=== PATIENT | female | born 1975 | race Caucasian/White ===

== ENCOUNTER 2019-07-19 16:49 | Emergency (ER) | payer SELFPAY ==
[2019-07-19 17:56] LABS: Barbiturates NEGATIVE (NEGATIVE); Benzodiazepines NEGATIVE (NEGATIVE); Cocaine NEGATIVE (NEGATIVE); METHAMPHETAM NEGATIVE (NEGATIVE); Methadone NEGATIVE (NEGATIVE); Opiates NEGATIVE (NEGATIVE); Phencyclidine NEGATIVE (NEGATIVE); THC Cannibis NEGATIVE (NEGATIVE)
[2019-07-19 18:24] LABS: Absolute Lymphocytes (CBC) 2.2 K/uL (0.7-4.9); Basophils % 0.7 % (0-1.3); Hematocrit 34.5 % (36.0-45.0); Lymphocytes % 37.9 % (15.3-44.8); MPV 7.8 fL (7.6-11.3); RBC Red Blood Cell Count 4.83 M/uL (3.86-4.86)
[2019-07-19 18:30] LABS: Urine Blood TRACE (NEG); Urine Glucose NEGATIVE (NEG); Urine Protein NEGATIVE (NEG)
[2019-07-19 18:32] LABS: Protime INR 0.92
[2019-07-19] MEDS ORDERED: NA CHLORIDE 0.9% 1,000 ML ONE (18:40)
[2019-07-19 19:05] LABS: Platelet Estimate ADEQ; Urine White Blood Cell Casts OK
[2019-07-19 19:06] LABS: Anisocytosis 1+; Blood Morphology Comment NOTED (NOT SEEN)
[2019-07-19 19:07] LABS: ALT/SGPT 37 U/L (12-78); AST/SGOT 52 U/L (15-37); Albumin 3.6 g/dL (3.4-5.0); Alkaline Phosphatase 154 U/L (45-117); BUN Blood Urea Nitrogen 10 mg/dL (7-18); Bicarbonate 29 mmol/L (21-32); Bilirubin Direct 0.1 mg/dL (0-0.2); Bilirubin Total 0.2 mg/dL (0.2-1.0); Glucose Level 89 mg/dL (74-106); Lipase 103 U/L (73-393); Protein, Total 7.8 g/dL (6.4-8.2); Sodium Level 143 mmol/L (136-145)
[2019-07-19] MEDS ORDERED: LORazepam 2 MG/ML VIAL ONE (19:09)
--- NOTE | 2019-07-19 20:47 | RAD REPORT ---
EXAM DESCRIPTION: CT - Abdomen Pelvis Wo Contrast - 07/19/2019 8:36 pm CLINICAL HISTORY: Abdominal pain. ABD PAIN COMPARISON: No comparisons TECHNIQUE: CT imaging of the abdomen and pelvis was performed without contrast. Solid organ, bowel a nd vascular assessment is limited due to lack of IV and oral contrast. All CT scans are performed using dose optimization technique as appropriate and may include automated exposure control or mA/KV adjustment according to patient size. FINDINGS: The lower lung borjas are clear.Cholecystectomy clips. Postsurgical changes about the stom ach. The liver, spleen, pancreas, adrenal glands and kidneys are within normal limits for a limited non-co ntrast examination. No bowel obstruction, free air, free fluid or abscess. The appendix is normal. The osseous structures are within normal limits.IUD is present in the uterus. IMPRESSION: No acute intra-abdominal or pelvic findings. A limited non-contrast examination was performed as detailed.
[2019-07-19] MEDS ORDERED: KETOROLAC 30 MG/ML INJ ONE (20:50)
[2019-07-20] MEDS ORDERED: LORazepam 2 MG/ML VIAL ONE (00:12)
[2019-07-20] MEDS ORDERED: ZIPRASIDONE MESYLA 20 MG/VIAL IM ONE (00:12)
[2019-07-20] MEDS ORDERED: DIPHENHYDRAMINE 50 MG/ML VIAL ONE (00:12)
[2019-07-20] MEDS ORDERED: WATER FOR INJ,STERILE 10 ML ONE (00:13)
--- NOTE | 2019-07-20 02:51 | ER ---
Nurse's Notes [facility] Name: Janessa Melton Age: 44 yrs Sex: Female : 1975 Arrival Date: 07/19/2019 Time: 16:53 Bed 14 Private MD: Diagnosis: Unspecified abdominal pain;Alcohol abuse Presentation: 07/19 17:00 Presenting complaint: EMS states: RLQ abdominal pain x 1 week, pt has been drinking jl7 today. Transition of care: patient was not received from another setting of care. Onset of symptoms was July 13, 2019. Risk Assessment: Do you want to hurt yourself or someone else? Patient reports no desire to harm self or others. Initial Sepsis Screen: Does the patient meet any 2 criteria? No. Patient's initial sepsis screen is negative. Does the patient have a suspected source of infection? No. Patient's initial sepsis screen is negative. Care prior to arrival: None. 17:00 Method Of Arrival: EMS: [facility] 17:00 Acuity: TATYANA 3 jl7 Triage Assessment: 17:00 General: Appears uncomfortable, ill, Behavior is agitated, crying, uncooperative. jl7 General: Pt refusing to answer questions, crying and repeatedly states "It hurts." while pointing at her RLQ. Pain: Complains of pain in right lower quadrant Pain currently is 10 out of 10 on a pain scale. Pain began x 1 week. Neuro: Level of Consciousness is awake, alert, obeys commands, Oriented to person, place, time, situation. Respiratory: Airway is patent Respiratory effort is even, unlabored, Respiratory pattern is regular, symmetrical. Historical: - Allergies: 18:23 No Known Allergies; jl7 - Home Meds: 18:23 digoxin 125 mcg Oral tab 1 tab once daily [Active]; Seroquel 100 mg Oral tab [Active]; jl7 omeprazole 40 mg Oral cpDR [Active]; promethazine 25 mg Oral tab [Active]; - PMHx: 18:23 Lupus; Atrial Fib; jl7 - Immunization history:: Adult Immunizations unknown. - Social history:: Smoking status: Patient/guardian denies using tobacco. - Ebola Screening: : No symptoms or risks identified at this time. Screenin:28 Abuse screen: Denies threats or abuse. Denies injuries from another. Nutritional jl7 screening: No deficits noted. Tuberculosis screening: No symptoms or risk factors identified. Fall Risk IV access (20 points). Assessment: 17:00 General: See triage assessment. jl7 18:00 Reassessment: Patient appears in no apparent distress at this time. No changes from jl7 previously documented assessment. Patient and/or family updated on plan of care and expected duration. Pain level reassessed. Patient is alert, oriented x 3, equal unlabored respirations, skin warm/dry/pink. 19:00 Reassessment: Patient appears in no apparent distress at this time. Patient and/or jb4 family updated on plan of care and expected duration. Pain level reassessed. Patient is alert, oriented x 3, equal unlabored respirations, skin warm/dry/pink. PT has a sitter at the bedside. Continues to try and get up out of bed. 20:04 Reassessment: Patient appears in no apparent distress at this time. Patient and/or jb4 family updated on plan of care and expected duration. Pain level reassessed. Patient is alert, oriented x 3, equal unlabored respirations, skin warm/dry/pink. Nurse at the bedside attempting ultrasound IV. 21:00 Reassessment: Patient appears in no apparent distress at this time. Patient and/or jb4 family updated on plan of care and expected duration. Pain level reassessed. Patient is alert, oriented x 3, equal unlabored respirations, skin warm/dry/pink. PT given a sandwich per request. 22:27 Reassessment: Patient appears in no apparent distress at this time. Patient and/or jb4 family updated on plan of care and expected duration. Pain level reassessed. Pt is resting in bed with eyes closed, respirations even and unlabored. no s/s of distress or pain noted at this time. 23:31 Reassessment: Patient appears in no apparent distress at this time. Patient and/or jb4 family updated on plan of care and expected duration. Pain level reassessed. Patient is alert, oriented x 3, equal unlabored respirations, skin warm/dry/pink. Attempted to call pt's . Derek Orlando [phone]. Did not get an answer, instructed Derek to call ED. 07/20 00:30 Reassessment: Patient and/or family updated on plan of care and expected duration. Pain jb4 level reassessed. Pt becoming increasingly noncompliant. refusing to stay in bed. Repeatedly trying to leave to the lobby to attempt to call a taxi or uber. PT reports not having anyone who can come and pick her up. Law enforcement , ER provider, and medical staff at the bedside. Pt agreed to take geodon, ativan, and benadryl. 01:45 Reassessment: Patient appears in no apparent distress at this time. Patient and/or jb4 family updated on plan of care and expected duration. Pain level reassessed. PT is resting in bed with respirations even and unlabored. no s/s of distress noted at this time. 02:45 Reassessment: Patient appears in no apparent distress at this time. No changes from jb4 previously documented assessment. Patient and/or family updated on plan of care and expected duration. Pain level reassessed. PT's d/c pending, pt being held in ED for further observation due to Geodon, Ativan, and Benadryl administration. 04:00 Reassessment: Patient appears in no apparent distress at this time. No changes from jb4 previously documented assessment. Patient and/or family updated on plan of care and expected duration. Pain level reassessed. 05:22 Reassessment: Patient appears in no apparent distress at this time. Patient and/or jb4 family updated on plan of care and expected duration. Pain level reassessed. Pt is resting in bed with respirations even and unlabored. No s/s of distress or pain noted. 06:50 Reassessment: Patient appears in no apparent distress at this time. Patient and/or jb4 family updated on plan of care and expected duration. Pain level reassessed. Patient is alert, oriented x 3, equal unlabored respirations, skin warm/dry/pink. PT discharged to [facility] to wait for ride home. Reports feeling better. Is coherent and ambulatory with a steady gait. Verbalized understanding of d/c and follow up instructions. Ambulated out of ED with a steady gait. Vital Signs: 07/19 17:00 BP 107 / 72; Pulse 87; Resp 14 S; Temp 98.6(TE); Pulse Ox 97% on R/A; Pain 10/10; jl7 18:00 BP 134 / 99; Pulse 87; Resp 16 S; Pulse Ox 100% on R/A; jl7 18:43 BP 117 / 86; Pulse 85; Resp 14 S; Pulse Ox 100% on R/A; jl7 20:15 BP 138 / 113; Pulse 80; Resp 16; Pulse Ox 100% on R/A; jb4 21:01 BP 145 / 107; Pulse 92; Resp 19; Pulse Ox 100% on R/A; jb4 22:00 BP 117 / 81; Pulse 85; Resp 20; Pulse Ox 100% on R/A; jb4 23:30 BP 124 / 93; Pulse 95; Resp 19; Pulse Ox 100% on R/A; dm5 07/20 00:30 BP 136 / 97; Pulse 93; Resp 20; Pulse Ox 100% on R/A; lp1 01:30 BP 114 / 74; Pulse 94; Resp 20; Pulse Ox 100% on R/A; lp1 02:45 BP 152 / 111; Pulse 92; Resp 21; Pulse Ox 94% on R/A; jb4 03:15 BP 115 / 81; Pulse 95; Resp 19; Pulse Ox 92% on R/A; jb4 04:30 BP 124 / 91; Pulse 85; Resp 19; Pulse Ox 93% on R/A; jb4 05:22 BP 133 / 99; Pulse 85; Resp 15; Pulse Ox 96% on R/A; jb4 ED Course: 07/19 16:53 Patient arrived in ED. bp 16:56 Angelito Hodgson MD is Attending Physician. kiana 16:57 Jack Mccall PA is PHCP. jr8 17:00 Arm band placed on right wrist. jl7 17:52 PHCP role handed off by Jack Mccall PA pm1 17:52 Yohannes Young NP is PHCP. pm1 18:00 Initial lab(s) drawn, by nd, sent to lab. Inserted saline lock: 24 gauge in left upper jl7 arm, using aseptic technique. Blood collected. 18:10 Initial lab(s) drawn, by me, sent to lab. Inserted saline lock: 24 gauge in left wrist, jl7 using aseptic technique. Blood collected. 18:16 Chance Wilkerson, ANA is Primary Nurse. jl7 18:19 Triage completed. jl7 18:27 Radiology exam delayed due to lab results not completed at this time. (BUN/Creatinine). mw3 18:28 Patient has correct armband on for positive identification. Placed in gown. Bed in low jl7 position. Call light in reach. Side rails up X2. electronic device monitor on. Pulse ox on. NIBP on. Warm blanket given. 20:01 Radiology exam delayed due to IV insertion attempt and/or patient not having mw3 appropriate IV at this time. 20:38 Abdomen In Process Unspecified. EDMS 23:16 PHCP role handed off by Yohannes Young NP cp 23:16 Angelito Mauricio PA is PHCP. cp 07/20 02:42 Reji Ambrocio MD is Referral Physician. cp 06:50 Primary Nurse role handed off by Chance Wilkerson RN jb4 06:50 Jose Conklin, ANA is Primary Nurse. jb4 06:50 No provider procedures requiring assistance completed. IV discontinued, intact, jb4 bleeding controlled, No redness/swelling at site. Pressure dressing applied. Administered Medications: 07/19 18:41 Drug: NS 0.9% 1000 ml Route: IV; Rate: 1000 ml; Site: left upper arm; jl7 19:10 Drug: Ativan 0.5 mg Route: IVP; Site: left antecubital; jb4 19:40 Follow up: Response: No adverse reaction jb4 20:50 Drug: TORadol - Ketorolac 15 mg Route: IVP; Site: left antecubital; jb4 21:20 Follow up: Response: No adverse reaction jb4 07/20 00:46 Drug: Geodon 10 mg Route: IM; Site: left deltoid; dm5 01:30 Follow up: Response: No adverse reaction; Marked relief of symptoms jb4 00:46 Drug: Benadryl 25 mg Route: IM; Site: right deltoid; dm5 01:30 Follow up: Response: No adverse reaction; Marked relief of symptoms jb4 00:46 Drug: Ativan 0.5 mg Route: IM; Site: right deltoid; dm5 01:30 Follow up: Response: No adverse reaction; Marked relief of symptoms jb4 00:59 Not Given (Patient Refused): Banana Bag - (NS 0.9% 1000 ml, foLIC Acid 1 mg, Thiamine dm5 100 mg, Multivitamin 1 amp) IV at 250 ml/hr once 06:42 Drug: Potassium Effervescent Tablet 50 mEq Route: PO; jb4 06:42 Follow up: Response: No adverse reaction jb4 Outcome: 02:42 Discharge ordered by . cp 06:50 Patient left the ED. jb4 06:50 Discharged to home ambulatory. jb4 06:50 Condition: stable 06:50 Discharge instructions given to patient, Instructed on discharge instructions, follow up and referral plans. Demonstrated understanding of instructions, follow-up care. Signatures: Dispatcher [employer] Perla Baez, RN RN dm5 Angelito Hodgson MD MD cha Pena, Laura RN RN lp1 Jack Mccall PA PA jr8 Angelito Mauricio PA PA cp Yohannes Young, INORGANIC CHEMISTRY PROFESSOR INORGANIC CHEMISTRY PROFESSOR pm1 Jose Conklin RN RN jb4 Chance Wilkerson RN RN jl7 Cruzito hCan RN RN bp Willis, Michelle mw3 Corrections: (The following items were deleted from the chart) 07/19 21:28 21:00 Reassessment: Patient appears in no apparent distress at this time. Patient jb4 and/or family updated on plan of care and expected duration. Pain level reassessed. Patient is alert, oriented x 3, equal unlabored respirations, skin warm/dry/pink. jb4 07/20 01:59 07/19 23:31 Reassessment: Patient appears in no apparent distress at this time. Patient jb4 and/or family updated on plan of care and expected duration. Pain level reassessed. Patient is alert, oriented x 3, equal unlabored respirations, skin warm/dry/pink. dm5 07/20 02:54 00:30 Reassessment: Patient and/or family updated on plan of care and expected jb4 duration. Pain level reassessed. Pt becoming increasingly uncompliant. refusing to stay in bed. Repeatedly trying to leave to the lobby to attempt to call a taxi or uber. PT reports not having anyone who can come and pick her up. Law enforcement , ER provider, and medical staff at the bedside. Pt agreed to take geodon, ativan, and benadryl. jb4
--- NOTE | 2019-07-20 02:52 | EDPHYS ---
Physician Documentation [facility] [place] [place] Name: Janessa Melton Age: 44 yrs Sex: Female : 1975 Arrival Date: 07/19/2019 Time: 16:53 Bed 14 Private MD: ED Physician Angelito Hodgson HPI: 07/19 17:08 This 44 yrs old Female presents to ER via Unassigned with complaints of abdominal pain. jr8 17:08 The patient presents with abdominal pain right lower quadrant. Onset: The jr8 symptoms/episode began/occurred acutely, 3 day(s) ago. The symptoms do not radiate. Associated signs and symptoms: Pertinent positives: nausea and vomiting. The symptoms are described as stabbing. Modifying factors: The symptoms are alleviated by nothing, the symptoms are aggravated by nothing. Severity of pain: At its worst the pain was moderate in the emergency department the pain is unchanged. It is unknown whether or not the patient has had similar symptoms in the past. It is unknown whether or not the patient has recently seen a physician. Patient smells of alcohol upon arrival. Stated that she has been drinking all day to dull the pain. Started with RLQ abdominal pain 3 days ago that is getting worse . Historical: - Allergies: 18:23 No Known Allergies; jl7 - Home Meds: 18:23 digoxin 125 mcg Oral tab 1 tab once daily [Active]; Seroquel 100 mg Oral tab [Active]; jl7 omeprazole 40 mg Oral cpDR [Active]; promethazine 25 mg Oral tab [Active]; - PMHx: 18:23 Lupus; Atrial Fib; jl7 - Immunization history:: Adult Immunizations unknown. - Social history:: Smoking status: Patient/guardian denies using tobacco. - Ebola Screening: : No symptoms or risks identified at this time. ROS: 17:08 Eyes: Negative for injury, pain, redness, and discharge, ENT: Negative for injury, jr8 pain, and discharge, Neck: Negative for injury, pain, and swelling, Cardiovascular: Negative for chest pain, palpitations, and edema, Respiratory: Negative for shortness of breath, cough, wheezing, and pleuritic chest pain, Back: Negative for injury and pain, MS/Extremity: Negative for injury and deformity, Skin: Negative for injury, rash, and discoloration, Neuro: Negative for headache, weakness, numbness, tingling, and seizure. 17:08 Abdomen/GI: Positive for abdominal pain, nausea and vomiting, Negative for diarrhea, constipation, abdominal cramps, abdominal distension. Exam: 17:08 Eyes: Pupils equal round and reactive to light, extra-ocular motions intact. Lids and jr8 lashes normal. Conjunctiva and sclera are non-icteric and not injected. Cornea within normal limits. Periorbital areas with no swelling, redness, or edema. ENT: Nares patent. No nasal discharge, no septal abnormalities noted. Tympanic membranes are normal and external auditory canals are clear. Oropharynx with no redness, swelling, or masses, exudates, or evidence of obstruction, uvula midline. Mucous membranes moist. Neck: Trachea midline, no thyromegaly or masses palpated, and no cervical lymphadenopathy. Supple, full range of motion without nuchal rigidity, or vertebral point tenderness. No Meningismus. Cardiovascular: Regular rate and rhythm with a normal S1 and S2. No gallops, murmurs, or rubs. Normal PMI, no JVD. No pulse deficits. Respiratory: Lungs have equal breath sounds bilaterally, clear to auscultation and percussion. No rales, rhonchi or wheezes noted. No increased work of breathing, no retractions or nasal flaring. Back: No spinal tenderness. No costovertebral tenderness. Full range of motion. Skin: Warm, dry with normal turgor. Normal color with no rashes, no lesions, and no evidence of cellulitis. MS/ Extremity: Pulses equal, no cyanosis. Neurovascular intact. Full, normal range of motion. Neuro: Awake and alert, GCS 15, oriented to person, place, time, and situation. Cranial nerves II-XII grossly intact. Motor strength 5/5 in all extremities. Sensory grossly intact. Cerebellar exam normal. Normal gait. 17:08 Abdomen/GI: Inspection: obese Bowel sounds: active, all quadrants, Palpation: soft, in all quadrants, moderate abdominal tenderness, in the right lower quadrant, mass, is not appreciated, rebound tenderness, is not appreciated, voluntary guarding, is not appreciated, involuntary guarding, is not appreciated, no appreciated organomegaly, Indicators: McBurney's point is tender, Gomez's sign is negative, Rovsing's sign is negative, Obturator sign is negative, Psoas sign is negative. Vital Signs: 17:00 BP 107 / 72; Pulse 87; Resp 14 S; Temp 98.6(TE); Pulse Ox 97% on R/A; Pain 10/10; jl7 18:00 BP 134 / 99; Pulse 87; Resp 16 S; Pulse Ox 100% on R/A; jl7 18:43 BP 117 / 86; Pulse 85; Resp 14 S; Pulse Ox 100% on R/A; jl7 20:15 BP 138 / 113; Pulse 80; Resp 16; Pulse Ox 100% on R/A; jb4 21:01 BP 145 / 107; Pulse 92; Resp 19; Pulse Ox 100% on R/A; jb4 22:00 BP 117 / 81; Pulse 85; Resp 20; Pulse Ox 100% on R/A; jb4 23:30 BP 124 / 93; Pulse 95; Resp 19; Pulse Ox 100% on R/A; dm5 07/20 00:30 BP 136 / 97; Pulse 93; Resp 20; Pulse Ox 100% on R/A; lp1 01:30 BP 114 / 74; Pulse 94; Resp 20; Pulse Ox 100% on R/A; lp1 02:45 BP 152 / 111; Pulse 92; Resp 21; Pulse Ox 94% on R/A; jb4 03:15 BP 115 / 81; Pulse 95; Resp 19; Pulse Ox 92% on R/A; jb4 04:30 BP 124 / 91; Pulse 85; Resp 19; Pulse Ox 93% on R/A; jb4 05:22 BP 133 / 99; Pulse 85; Resp 15; Pulse Ox 96% on R/A; jb4 MDM: 07/19 16:56 Patient medically screened. [facility] 07/20 00:00 Differential diagnosis: appendicitis, gastritis, non-specific abd pain, pancreatitis, cp Pyelonephritis, Ureterolithiasis, urinary tract infection. Counseling: I had a detailed discussion with the patient and/or guardian regarding: the historical points, exam findings, and any diagnostic results supporting the discharge/admit diagnosis, the presence of at least one elevated blood pressure reading (>120/80) during this emergency department visit, lab results, radiology results, to return to the emergency department if symptoms worsen or persist or if there are any questions or concerns that arise at home. Response to treatment: the patient's symptoms have markedly improved after treatment, and as a result, I will discharge patient. 02:41 Data reviewed: vital signs, nurses notes, lab test result(s), EKG, radiologic studies, cp CT scan. 02:41 Test interpretation: by ED physician or midlevel provider: ECG. 07/19 16:58 Order name: Acetaminophen; Complete Time: 19:22 07/19 16:58 Order name: Basic Metabolic Panel; Complete Time: 19:22 07/19 16:58 Order name: CBC with Diff; Complete Time: 19:07 07/19 16:58 Order name: ETOH Level; Complete Time: 18:57 07/19 16:58 Order name: Hepatic Function; Complete Time: 19:22 07/19 16:58 Order name: PT-INR; Complete Time: 18:38 07/19 16:58 Order name: Ptt, Activated; Complete Time: 18:38 07/19 16:58 Order name: Salicylate; Complete Time: 19:08 07/19 16:58 Order name: Urine Drug Screen; Complete Time: 17:57 07/19 16:58 Order name: Digoxin; Complete Time: 19:22 07/19 16:58 Order name: Lipase; Complete Time: 19:22 07/19 17:47 Order name: Urine Dipstick--Ancillary (enter results); Complete Time: 18:32 ms 07/19 17:47 Order name: Urine --Ancillary (enter results); Complete Time: 18:32 ms 07/19 18:28 Order name: CBC Smear Scan; Complete Time: 19:07 EDMS 07/19 16:58 Order name: Urine Test (obtain specimen); Complete Time: 18:41 07/19 16:58 Order name: EKG; Complete Time: 17:00 07/19 16:58 Order name: EKG - Nurse/Tech; Complete Time: 18:17 07/19 16:58 Order name: IV Saline Lock; Complete Time: 18:17 07/19 20:24 Order name: Abdomen ; Complete Time: 20:55 EDMS 07/20 02:03 Order name: Alcohol Level 07/20 02:54 Order name: Alcohol Serum/Plasma; Complete Time: 03:09 EDMS 07/19 16:58 Order name: Labs collected and sent; Complete Time: 18:17 jr8 07/19 16:58 Order name: Urine Dipstick-Ancillary (obtain specimen); Complete Time: 18:17 jr8 Administered Medications: 07/19 18:41 Drug: NS 0.9% 1000 ml Route: IV; Rate: 1000 ml; Site: left upper arm; jl7 19:10 Drug: Ativan 0.5 mg Route: IVP; Site: left antecubital; jb4 19:40 Follow up: Response: No adverse reaction jb4 20:50 Drug: TORadol - Ketorolac 15 mg Route: IVP; Site: left antecubital; jb4 21:20 Follow up: Response: No adverse reaction jb4 07/20 00:46 Drug: Geodon 10 mg Route: IM; Site: left deltoid; dm5 01:30 Follow up: Response: No adverse reaction; Marked relief of symptoms jb4 00:46 Drug: Benadryl 25 mg Route: IM; Site: right deltoid; dm5 01:30 Follow up: Response: No adverse reaction; Marked relief of symptoms jb4 00:46 Drug: Ativan 0.5 mg Route: IM; Site: right deltoid; dm5 01:30 Follow up: Response: No adverse reaction; Marked relief of symptoms jb4 00:59 Not Given (Patient Refused): Banana Bag - (NS 0.9% 1000 ml, foLIC Acid 1 mg, Thiamine dm5 100 mg, Multivitamin 1 amp) IV at 250 ml/hr once 06:42 Drug: Potassium Effervescent Tablet 50 mEq Route: PO; jb4 06:42 Follow up: Response: No adverse reaction jb4 Disposition: 09:37 Co-signature as Attending Physician, Angelito Hodgson MD I agree with the assessment and kiana plan of care. Disposition: 07/20/19 02:42 Discharged to Home. Impression: Unspecified abdominal pain, Alcohol abuse. - Condition is Stable. - Discharge Instructions: Hypokalemia, Abdominal Pain, Adult, Finding Treatment for Addiction, Alcohol Abuse and Nutrition. - Medication Reconciliation Form, Thank You Letter, Antibiotic Education, Prescription Opioid Use form. - Follow up: Emergency Department; When: As needed; Reason: Worsening of condition. Follow up: Private Physician; When: 2 - 3 days; Reason: Recheck today's complaints, Continuance of care, Re-evaluation by your physician. Follow up: Reji Ambrocio; When: 2 - 3 days; Reason: Recheck today's complaints, Continuance of care, Re-evaluation by your physician. - Problem is new. - Symptoms have improved. Signatures: Dispatcher [employer] [facility] Perla Lane, RN RN dm5 Angelito Hodgson MD MD cha Lam, Pin, MD MD pkl Roszak, Josh, PA PA jr8 Angelito Mauricio PA PA cp Yohannes Young, GENERAL PEDIATRICIAN GENERAL PEDIATRICIAN pm1 Jose Conklin, RN RN jb4 Chance Wilkerson RN RN jl7 Corrections: (The following items were deleted from the chart) 07/19 20:23 17:15 Abdomen Pelvis W Con+CT.RAD.BRZ ordered. [facility] 07/20 06:50 02:42 07/20/2019 02:42 Discharged to Home. Impression: Unspecified abdominal pain; jb4 Alcohol abuse. Condition is Stable. Discharge Instructions: Abdominal Pain, Adult, Finding Treatment for Addiction, Alcohol Abuse and Nutrition. Forms are Medication Reconciliation Form, Thank You Letter, Antibiotic Education, Prescription Opioid Use. Follow up: Emergency Department; When: As needed; Reason: Worsening of condition. Follow up: Private Physician; When: 2 - 3 days; Reason: Recheck today's complaints, Continuance of care, Re-evaluation by your physician. Follow up: Reji Ambrocio; When: 2 - 3 days; Reason: Recheck today's complaints, Continuance of care, Re-evaluation by your physician. Problem is new. Symptoms have improved. cp
--- NOTE | 2019-07-20 05:31 | EKG ---
Test Date: 2019-07-19 Test Time: 18:03:51 Echo Vascular Tech: VAISHALI MEASUREMENT RESULTS: Intervals: Rate: 97 NC: 136 QRSD: 82 QT: 368 QTc: 467 [place]: P: 52 NC: 136 QRS: 37 T: 65 INTERPRETIVE STATEMENTS: Normal sinus rhythm Normal ECG No previous ECG available for comparison Electronically Signed On 07-20-19 05:30:16 TRAINING AND DEVELOPMENT MANAGER by Ruddy Obregon
[2019-07-20] MEDS ORDERED: POTASSIUM 25 MEQ EFFERV TAB ONE (06:36)
[2019-07-20 06:59] VITALS: TEMP 98.6
[2019-07-20 07:15] VITALS: BP 133/99; O2SAT 96
== END 2019-07-20 06:50 | disposition home or self-care (01) ==
LOC: ER 16:49
DX: F10.10 Alcohol abuse, uncomplicated (principal); I48.91 Unspecified atrial fibrillation
CPT/HCPCS: 36415; 74176; 80048; 80076; 80162; 80307; 80320; 80329; 81003; 81025; 83690; 85025; 85610; 85730; 93005; 96372; 96374; 96375; 99285; J1200; J3486; J7030

== ENCOUNTER 2019-07-30 03:01 | Emergency (ER) | payer SELFPAY ==
[2019-07-30] MEDS ORDERED: KETOROLAC 30 MG/ML INJ ONE (03:14)
[2019-07-30] MEDS ORDERED: NA CHLORIDE 0.9% 1,000 ML ONE (03:14)
[2019-07-30 03:34] LABS: Absolute Lymphocytes (CBC) 1.7 K/uL (0.7-4.9); Hematocrit 30.6 % (36.0-45.0); Lymphocytes % 38.7 % (15.3-44.8); MPV 7.1 fL (7.6-11.3); RBC Red Blood Cell Count 4.14 M/uL (3.86-4.86)
[2019-07-30 04:06] LABS: ALT/SGPT 32 U/L (12-78); AST/SGOT 39 U/L (15-37); Alkaline Phosphatase 129 U/L (45-117); BUN Blood Urea Nitrogen 11 mg/dL (7-18); Bicarbonate 26 mmol/L (21-32); Bilirubin Direct < 0.1 mg/dL (0-0.2); Bilirubin Total 0.2 mg/dL (0.2-1.0); Glucose Level 86 mg/dL (74-106); Lipase 56 U/L (73-393); Potassium 3.3 mmol/L (3.5-5.1); Protein, Total 6.6 g/dL (6.4-8.2); Sodium Level 144 mmol/L (136-145)
[2019-07-30 04:31] LABS: Barbiturates NEGATIVE (NEGATIVE); Benzodiazepines NEGATIVE (NEGATIVE); Cocaine NEGATIVE (NEGATIVE); METHAMPHETAM NEGATIVE (NEGATIVE); Methadone NEGATIVE (NEGATIVE); Opiates NEGATIVE (NEGATIVE); Phencyclidine NEGATIVE (NEGATIVE); THC Cannibis NEGATIVE (NEGATIVE)
[2019-07-30 04:39] LABS: Anisocytosis 3+; Blood Morphology Comment NOTED (NOT SEEN); Platelet Estimate ADEQ; Urine White Blood Cell Casts OK
[2019-07-30 05:13] LABS: Urine Blood NEGATIVE (NEG); Urine Glucose NEGATIVE (NEG); Urine Protein NEGATIVE (NEG)
--- NOTE | 2019-07-30 07:59 | EDPHYS ---
Physician Documentation [facility] Name: Janessa Melton Age: 44 yrs Sex: Female : 1975 Arrival Date: 07/30/2019 Time: 03:03 Bed 6 Private MD: ED Physician Mehdi Mariee HPI: 07/30 03:30 This 44 yrs old Female presents to ER via EMS with complaints of Abdominal tw4 Pain. 03:30 The patient presents with abdominal pain. Onset: The symptoms/episode began/occurred tw4 today. The symptoms do not radiate. The symptoms are described as sharp. Severity of pain: At its worst the pain was severe. Unable to obtain HPI due to patient distress. 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 - Social history:: Smoking status: Patient uses tobacco products, denies chronic smoking, but will smoke occasionally. - Ebola Screening: : No symptoms or risks identified at this time. ROS: 03:30 Constitutional: Negative for fever, chills, and weight loss, Eyes: Negative for injury, tw4 pain, redness, and discharge, Cardiovascular: Negative for chest pain, palpitations, and edema, Respiratory: Negative for shortness of breath, cough, wheezing, and pleuritic chest pain, Back: Negative for injury and pain, MS/Extremity: Negative for injury and deformity, Skin: Negative for injury, rash, and discoloration. 03:30 Abdomen/GI: Positive for Exam: 03:30 Head/Face: Normocephalic, atraumatic. Chest/axilla: Normal chest wall appearance and tw4 motion. Nontender with no deformity. No lesions are appreciated. Cardiovascular: Regular rate and rhythm with a normal S1 and S2. No gallops, murmurs, or rubs. Normal PMI, no JVD. No pulse deficits. Respiratory: Lungs have equal breath sounds bilaterally, clear to auscultation and percussion. No rales, rhonchi or wheezes noted. No increased work of breathing, no retractions or nasal flaring. Back: No spinal tenderness. No costovertebral tenderness. Full range of motion. MS/ Extremity: Pulses equal, no cyanosis. Neurovascular intact. Full, normal range of motion. Neuro: Awake and alert, GCS 15, oriented to person, place, time, and situation. Cranial nerves II-XII grossly intact. Motor strength 5/5 in all extremities. Sensory grossly intact. Cerebellar exam normal. Normal gait. 03:30 Constitutional: The patient appears in obvious distress, moderately distressed, uncomfortable. 03:30 Abdomen/GI: Inspection: abdomen appears normal, Bowel sounds: diminished, Palpation: moderate abdominal tenderness, in the right lower quadrant. Vital Signs: 03:05 BP 134 / 103; Pulse 92; Resp 20; Temp 98.7; Pulse Ox 99% on R/A; Weight 74.84 kg; aa1 Height 5 ft. 9 in. (175.26 cm); Pain 10/10; 04:00 BP 120 / 90; Pulse 90; Resp 16; Pulse Ox 96% ; aa1 06:15 BP 134 / 93; Pulse 84; Resp 16; Pulse Ox 100% on 2 lpm NC; aa1 07:49 BP 122 / 77; Pulse 92; Resp 16; Pulse Ox 100% ; sv 03:05 Body Mass Index 24.37 (74.84 kg, 175.26 cm) aa1 MDM: 03:04 Patient medically screened. tw4 05:46 Data reviewed: vital signs, nurses notes. Counseling: I had a detailed discussion with [facility] the patient and/or guardian regarding: the historical points, exam findings, and any diagnostic results supporting the discharge/admit diagnosis. 07/30 03:05 Order name: Basic Metabolic Panel; Complete Time: 07:36 [facility] 07/30 03:05 Order name: CBC with Diff; Complete Time: 07:36 [facility] 07/30 03:05 Order name: Creatinine for Radiology; Complete Time: 07:36 07/30 03:05 Order name: Hepatic Function; Complete Time: 07:36 tw4 07/30 03:05 Order name: Lipase; Complete Time: 07:36 tw4 07/30 03:05 Order name: Urine Drug Screen; Complete Time: 07:36 tw4 07/30 03:26 Order name: Test, Serum; Complete Time: 07:36 tw4 07/30 03:27 Order name: CT Abd/Pelvis - IV Contrast Only tw4 07/30 03:40 Order name: CBC Smear Scan; Complete Time: 07:36 [facility] 07/30 03:46 Order name: Alcohol Level; Complete Time: 05:46 tw4 07/30 04:06 Order name: Urine Dipstick--Ancillary (enter results); Complete Time: 07:36 [facility] 07/30 04:06 Order name: Urine --Ancillary (enter results); Complete Time: 07:36 [facility] 07/30 03:05 Order name: IV Saline Lock; Complete Time: 03:23 tw4 07/30 03:05 Order name: Labs collected and sent; Complete Time: 03:23 tw4 07/30 03:26 Order name: Urine Dipstick-Ancillary (obtain specimen); Complete Time: 04:04 tw4 07/30 03:26 Order name: Urine Test (obtain specimen); Complete Time: 04:04 tw4 Administered Medications: 03:28 Drug: NS 0.9% 1000 ml Route: IV; Rate: 1 bolus; Site: left forearm; bb 03:28 Drug: TORadol 30 mg Route: IVP; Site: left forearm; bb Disposition: 07/30/19 07:58 Discharged to Home. Impression: Alcohol abuse with intoxication, abdominal wall hematoma. - Condition is Stable. - Discharge Instructions: Alcohol Intoxication, Hematoma. - Prescriptions for Ibuprofen 800 mg Oral Tablet - take 1 tablet by ORAL route every 8 hours As needed take with food; 30 tablet. - Medication Reconciliation Form, Thank You Letter, Antibiotic Education, Prescription Opioid Use form. - Follow up: Private Physician; When: Upon discharge from the Emergency Department; Reason: Recheck today's complaints, Continuance of care. - Problem is an ongoing problem. - Symptoms are unchanged. Signatures: Dispatcher [employer] Viv Garay RN RN sv Autenrieth, Alissa, RN RN aa1 Radha Haynes RN RN Jack Rosales PA PA jr8 Mehdi Mariee MD MD tw4 Corrections: (The following items were deleted from the chart) 08:02 07:58 07/30/2019 07:58 Discharged to Home. Impression: Alcohol abuse with intoxication; sv abdominal wall hematoma. Condition is Stable. Discharge Instructions: Alcohol Intoxication, Hematoma. Prescriptions for Ibuprofen 800 mg Oral Tablet - take 1 tablet by ORAL route every 8 hours As needed take with food; 30 tablet. and Forms are Medication Reconciliation Form, Thank You Letter, Antibiotic Education, Prescription Opioid Use. Follow up: Private Physician; When: Upon discharge from the Emergency Department; Reason: Recheck today's complaints, Continuance of care. Problem is an ongoing problem. Symptoms are unchanged. [id number]
--- NOTE | 2019-07-30 07:59 | ER ---
Nurse's Notes [facility] Name: Janessa Melton Age: 44 yrs Sex: Female : 1975 Arrival Date: 07/30/2019 Time: 03:03 Bed 6 Private MD: Diagnosis: Alcohol abuse with intoxication;abdominal wall hematoma Presentation: 07/30 03:05 Presenting complaint: EMS states: pt called c/o severe abd pain. States she informed aa1 them that she has a hx of lupus and this happens every time she has a flare up. Reports last flare up was 8 yrs ago. EMS reports they also observed pt walking around at a local bar a few hrs prior to her contacting them and that pt appeared to be intoxicated. Pt alert and oriented but appears to be under the influence of an unknown substance. Transition of care: patient was not received from another setting of care. Onset of symptoms was July 30, 2019. Risk Assessment: Do you want to hurt yourself or someone else? Patient reports no desire to harm self or others. Initial Sepsis Screen: Does the patient meet any 2 criteria? HR > 90 bpm. Does the patient have a suspected source of infection? Yes: Acute abdominal pain. Care prior to arrival: None. 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 - Social history:: Smoking status: Patient uses tobacco products, denies chronic smoking, but will smoke occasionally. - Ebola Screening: : No symptoms or risks identified at this time. Screenin:05 Abuse screen: Denies threats or abuse. Denies injuries from another. Nutritional aa1 screening: No deficits noted. Tuberculosis screening: No symptoms or risk factors identified. Fall Risk None identified. Assessment: 03:05 General: Appears in no apparent distress. uncomfortable, Behavior is cooperative, aa1 restless, Smells of alcohol. Pain: Complains of pain in right upper quadrant and right lower quadrant Pain currently is 10 out of 10 on a pain scale. Is continuous. Neuro: Level of Consciousness is awake, obeys commands, Oriented to person, place, time, situation, Speech is slurred. Neuro: Pupils are dilated. Cardiovascular: Denies chest pain. Respiratory: Airway is patent Respiratory effort is even, unlabored, Respiratory pattern is regular, symmetrical. GI: Abdomen is non-distended, Abd is soft X 4 quads Abdomen is tender to palpation in right upper quadrant and right lower quadrant. : No signs and/or symptoms were reported regarding the genitourinary system. EENT: No signs and/or symptoms were reported regarding the EENT system. Derm: Skin is intact, is healthy with good turgor, Skin is pink, warm \T\ dry. Musculoskeletal: Capillary refill < 3 seconds. 04:00 Reassessment: Patient appears in no apparent distress at this time. Pt's O2 sat aa1 decreases to upper 80's while sleeping; placed on nasal cannula at 2L which improved sats to >95%. 04:25 Reassessment: Patient appears in no apparent distress at this time. Patient and/or aa1 family updated on plan of care and expected duration. Pain level reassessed. Patient is alert, oriented x 3, equal unlabored respirations, skin warm/dry/pink. Pt taken to CT at this time. 04:36 Reassessment: Patient appears in no apparent distress at this time. Pt back from CT. aa1 05:30 Reassessment: Patient appears in no apparent distress at this time. Patient and/or aa1 family updated on plan of care and expected duration. Pain level reassessed. Patient is alert, oriented x 3, equal unlabored respirations, skin warm/dry/pink. Awaiting CT results. 06:15 Reassessment: Patient appears in no apparent distress at this time. Pt resting quietly. aa1 Awaiting provider reassessment. 07:48 Reassessment: Called Derek to see if he would be able to take her home, he stated that sv he is currently in [facility] and unable to come get her. 08:00 Reassessment: Patient appears in no apparent distress at this time. Patient and/or sv family updated on plan of care and expected duration. Pain level reassessed. Patient is alert, oriented x 3, equal unlabored respirations, skin warm/dry/pink. Pt ambulatory with no unsteady gait. Pt called herself a taxi to get home. Vital Signs: 03:05 BP 134 / 103; Pulse 92; Resp 20; Temp 98.7; Pulse Ox 99% on R/A; Weight 74.84 kg; aa1 Height 5 ft. 9 in. (175.26 cm); Pain 10/10; 04:00 BP 120 / 90; Pulse 90; Resp 16; Pulse Ox 96% ; aa1 06:15 BP 134 / 93; Pulse 84; Resp 16; Pulse Ox 100% on 2 lpm NC; aa1 07:49 BP 122 / 77; Pulse 92; Resp 16; Pulse Ox 100% ; sv 03:05 Body Mass Index 24.37 (74.84 kg, 175.26 cm) aa1 ED Course: 03:03 Patient arrived in ED. ds1 03:04 Mehdi Mariee MD is Attending Physician. tw4 03:05 Arm band placed on right wrist. aa1 03:05 Patient has correct armband on for positive identification. Bed in low position. Call aa1 light in reach. Pulse ox on. NIBP on. Warm blanket given. 03:23 Karon Noble, RN is Primary Nurse. aa1 03:25 Triage completed. aa1 03:45 Inserted saline lock: 22 gauge in left forearm, using aseptic technique. Blood ds4 collected. 03:55 Straight cath inserted, using sterile technique, 16 Fr. Specimen obtained. Returned ds4 clear yellow urine. Patient tolerated well. 04:00 Oxygen administration via nasal cannula \T\ 2L/min. aa1 04:04 Basic Metabolic Panel Sent. ds4 04:04 CBC with Diff Sent. ds4 04:04 Hepatic Function Sent. ds4 04:04 Lipase Sent. ds4 04:04 Urine Drug Screen Sent. ds4 04:04 Alcohol Level Sent. ds4 04:06 CBC Smear Scan Sent. ds4 04:06 Test, Serum Sent. ds4 04:52 CT Abd/Pelvis - IV Contrast Only In Process Unspecified. EDMS 07:08 Primary Nurse role handed off by Karon Noble RN 07:08 Viv Finnegan, RN is Primary Nurse. sv 08:01 No provider procedures requiring assistance completed. IV discontinued, intact, sv bleeding controlled, No redness/swelling at site. Pressure dressing applied. Administered Medications: 03:28 Drug: NS 0.9% 1000 ml Route: IV; Rate: 1 bolus; Site: left forearm; bb 03:28 Drug: TORadol 30 mg Route: IVP; Site: left forearm; bb Outcome: 07:58 Discharge ordered by MD. singh 08:01 Discharged to home ambulatory. sv 08:01 Condition: stable 08:01 Discharge instructions given to patient, Instructed on discharge instructions, follow up and referral plans. medication usage, Demonstrated understanding of instructions, follow-up care, medications, Prescriptions given X 1. 08:02 Patient left the ED. sv Signatures: Dispatcher [employer] [facility] Viv Finnegan RN RN Karon Noble RN RN aa1 Nuzhat Tinoco ds1 Radha Haynes RN RN bb Jack Mccall PA PA jr8 Pierce Rosenberg ds4 Mehdi Mariee MD MD tw4 Corrections: (The following items were deleted from the chart) 08:02 07:49 Pulse 92bpm; Resp 16bpm; Pulse Ox 100%; sv sv
[2019-07-30 08:28] VITALS: TEMP 98.7
[2019-07-30 08:31] VITALS: O2SAT 100
[2019-07-30 08:33] VITALS: BP 122/77
--- NOTE | 2019-07-30 11:47 | RAD REPORT ---
EXAM DESCRIPTION: CT Abdomen and Pelvis With Intravenous Contrast CLINICAL HISTORY: The patient is 44 years old and is Female; ABD PAIN TECHNIQUE: Axial computed tomography images of the abdomen and pelvis with intravenous contrast. S agittal and coronal reformatted images were created and reviewed. This CT exam was performed using one or more of the following dose reduction techniques: automated exposure control, adjustment of t he mA and/or kV according to patient size, and/or use of iterative reconstruction technique. COMPARISON: No relevant prior studies available. FINDINGS: LUNG BASES: Unremarkable. No mass. No consolidation. MEDIASTINUM: Esophageal wall thickening of the distal esophagus is noted. ABDOMEN: LIVER: There is a diffuse decrease in hepatic parenchymal density, consistent with fatty infiltr ation. GALLBLADDER AND BILE DUCTS: Surgical clips are present in the right upper quadrant, consistent w ith previous cholecystectomy. PANCREAS: No ductal dilation. No mass. SPLEEN: Unremarkable. ADRENALS: Unremarkable. No mass. KIDNEYS AND URETERS: Unremarkable. The kidneys enhance symmetrically. No obstructing renal or ur eteral calculus is seen. No hydronephrosis or hydroureter. No perinephric fluid or stranding. STOMACH AND BOWEL: Postsurgical change of the stomach is present. Proximal small bowel is decomp ressed. The small bowel within the left abdomen is fluid-filled and minimally prominent. Stool is pre sent throughout colon. There is no mucosal thickening or evidence of bowel obstruction. PELVIS: APPENDIX: No findings to suggest acute appendicitis. BLADDER: Unremarkable. No mass. REPRODUCTIVE: Unremarkable as visualized. ABDOMEN and PELVIS: INTRAPERITONEAL SPACE: Unremarkable. No free air. No significant fluid collection. BONES/JOINTS: No acute fracture. SOFT TISSUES: Bilateral breast implants are partially visualized. Enlargement and edema of the right internal oblique muscle is present. Large area of central low attenuation within the muscle is present. VASCULATURE: Unremarkable. No abdominal aortic aneurysm. LYMPH NODES: Unremarkable. No enlarged lymph nodes. IMPRESSION: Findings suggestive of a hematoma within the right internal oblique muscle which is enla rged and edematous. Correlation for history of recent trauma is recommended. Alternatively, myositis and questionable intersubstance tear is within the differential. An MRI could be performed for furthe r evaluation. Electronically signed by: Margarita Pedersen MD 07/30/2019 5:12 AM WELFARE CENTRE MANAGER Due to temporary technical issues with the PACS/Fluency reporting system, reports are being signed by the in house radiologist as a courtesy to ensure prompt reporting. The interpreting radiologist is f ully responsible for the content of the report.
== END 2019-07-30 08:02 | disposition home or self-care (01) ==
LOC: ER 03:01
DX: S30.1XXA Contusion of abdominal wall, initial encounter (principal); F10.129 Alcohol abuse with intoxication, unspecified; I10 Essential (primary) hypertension; I48.91 Unspecified atrial fibrillation; F31.9 Bipolar disorder, unspecified; Z72.0 Tobacco use
CPT/HCPCS: 36415; 51702; 74177; 80048; 80076; 80307; 80320; 81003; 81025; 83690; 84703; 85025; 96374; 99285; J7030; Q9967

== ENCOUNTER 2019-07-31 23:03 | Emergency (ER) | payer SELFPAY ==
--- NOTE | 2019-07-31 23:26 | ER ---
Nurse's Notes [facility] Name: Janessa Melton Age: 44 yrs Sex: Female : 1975 Arrival Date: 07/31/2019 Time: 23:05 Bed 3 Private MD: Diagnosis: Presentation: 07/31 22:58 Presenting complaint: Patient states: Pt reports she started having abdominal pain and ea chest pain. Transition of care: patient was not received from another setting of care. Onset of symptoms was July 31, 2019. Risk Assessment: Do you want to hurt yourself or someone else? Patient reports no desire to harm self or others. Initial Sepsis Screen: Does the patient meet any 2 criteria? No. Patient's initial sepsis screen is negative. Does the patient have a suspected source of infection? No. Patient's initial sepsis screen is negative. Care prior to arrival: None. 22:58 Method Of Arrival: EMS: [facility] ea 22:58 Acuity: TATYANA 3 ea Assessment: 23:13 Reassessment: Patient and/or family updated on plan of care and expected duration. Pain ea level reassessed. Patient is alert, oriented x 3, equal unlabored respirations, skin warm/dry/pink. Pt refused care at this time states "I don't want to be here, I'm getting an Uber" Pt refused any treatment and left ED. Vital Signs: 23:12 ea 23:12 Pt refused care ea ED Course: 22:58 Arm band placed on right wrist. Patient placed in an exam room, on a stretcher, Pt ea refused care. 23:05 Patient arrived in ED. ea 23:12 Triage completed. ea 23:13 Patient has correct armband on for positive identification. Bed in low position. Call ea light in reach. Administered Medications: No medications were administered Outcome: 23:25 Patient left the ED. Signatures: Margaret Ng RN RN Love Covarrubias RN RN ea Corrections: (The following items were deleted from the chart) 23:13 22:58 Arm band placed on right wrist. Patient placed in an exam room, on a stretcher, ea on pulse oximetry, ea 23:13 22:58 Arm band placed on right wrist. Patient placed in an exam room, on a stretcher, ea on pulse oximetry, ea
== END 2019-07-31 23:25 | disposition left against medical advice (07) ==
LOC: ER 23:03
DX: Z53.21 Procedure and treatment not carried out due to patient leaving prior to being seen by health care provider (principal)
CPT/HCPCS: 99282

== ENCOUNTER 2019-08-01 06:49 | Emergency (ER) | payer SELFPAY ==
[2019-08-01 07:20] LABS: Hematocrit 28.7 % (36.0-45.0); Lymphocytes % 38.9 % (15.3-44.8); MPV 7.2 fL (7.6-11.3)
[2019-08-01 07:21] LABS: Absolute Lymphocytes (CBC) 1.2 K/uL (0.7-4.9); Basophils % 1.9 % (0-1.3)
[2019-08-01] MEDS ORDERED: ONDANSETRON 4 MG/2 ML VIAL ONE (07:27)
[2019-08-01] MEDS ORDERED: NA CHLORIDE 0.9% 1,000 ML ONE (07:27)
[2019-08-01 07:46] LABS: ALT/SGPT 41 U/L (12-78); AST/SGOT 60 U/L (15-37); Albumin 2.9 g/dL (3.4-5.0); Alkaline Phosphatase 156 U/L (45-117); BUN Blood Urea Nitrogen 11 mg/dL (7-18); Bicarbonate 26 mmol/L (21-32); Bilirubin Direct < 0.1 mg/dL (0-0.2); Bilirubin Total 0.1 mg/dL (0.2-1.0); Glucose Level 105 mg/dL (74-106); Lipase 74 U/L (73-393); Potassium 3.5 mmol/L (3.5-5.1); Protein, Total 6.5 g/dL (6.4-8.2); Sodium Level 146 mmol/L (136-145)
[2019-08-01 07:59] LABS: Anisocytosis 2+; Blood Morphology Comment NOTED (NOT SEEN); Platelet Estimate ADEQ; White Blood Cell Scan OK
--- NOTE | 2019-08-01 12:08 | ER ---
Nurse's Notes [facility] Name: Janessa Meltno Age: 44 yrs Sex: Female : 1975 Arrival Date: 08/01/2019 Time: 06:54 Bed 17 Private MD: Diagnosis: Generalized abdominal pain;Alcohol abuse with intoxication Presentation: 08/01 06:45 Presenting complaint: EMS states: that they were toned for pt having abdominal pain fc along with nausea and vomiting. They states pt has also been drinking ETOH. Pt was brought to ER earlier tonight for same reason and refused any treatment and left. Transition of care: patient was not received from another setting of care. Onset of symptoms was July 2019. Risk Assessment: Do you want to hurt yourself or someone else? Patient reports no desire to harm self or others. Initial Sepsis Screen: Does the patient meet any 2 criteria? HR > 90 bpm. Yes Does the patient have a suspected source of infection? No. Patient's initial sepsis screen is negative. Care prior to arrival: None. 06:45 Method Of Arrival: EMS: [facility] 06:45 Acuity: TATYANA 3 fc Historical: - Allergies: 07:01 No Known Allergies; fc - Home Meds: 07:01 gabapentin 100 mg oral cap 2 caps 3 times per day [Active]; digoxin 125 mcg Oral tab 1 fc tab once daily [Active]; clonazepam 0.5 mg Oral tab 1 tab bid prn [Active]; albuterol sulfate 90 mcg/actuation inhalation HFAA 2 puffs every 4 hours [Active]; hydroxyzine pamoate 25 mg Oral cap 1 cap 3 times per day [Active]; promethazine 25 mg Oral tab 1 tab q 6hrs prn [Active]; - PMHx: 07:01 Atrial Fib; Bipolar disorder; Hypertension; Lupus; fc - Immunization history:: Last tetanus immunization: unknown. - Social history:: Smoking status: Patient reports the use of cigarette tobacco products, smokes one pack cigarettes per day. Patient uses alcohol, on a daily basis. Patient/guardian denies using street drugs. - Ebola Screening: : Patient negative for fever greater than or equal to 101.5 degrees Fahrenheit, and additional compatible Ebola Virus Disease symptoms Patient denies exposure to infectious person Patient denies travel to an Ebola-affected area in the 21 days before illness onset. Screenin:58 Abuse screen: Denies threats or abuse. Nutritional screening: No deficits noted. fc Tuberculosis screening: No symptoms or risk factors identified. Assessment: 07:00 General: RECD REPORT FROM CRISTINA PEREZ. 44YO WF P/W ETOH INTOXICATION. PT SEEN FOR SAME MX bp TIMES IN PAST WEEK. LEFT AMA FOR SAME <12 HR AGO. Pain: Complains of pain in abdomen. Neuro: Level of Consciousness is confused, lethargic, Oriented to REFUSES TO ANSWER. Cardiovascular: No deficits noted. Respiratory: No deficits noted. GI: Bowel sounds present X 4 quads. Abd is soft X 4 quads. : No signs and/or symptoms were reported regarding the genitourinary system. EENT: No deficits noted. Derm: No deficits noted. Musculoskeletal: No deficits noted. 07:15 Reassessment: PT UNCOOPERATIVE WITH HEALTH CARE ACTIVITIES AND MONITORING, PROVIDER bp INFORMED. 07:30 Reassessment: PT REORIENTED TO HEALTH CARE PROCESS AND ESCORTED BACK TO STRETCHER. PIV bp IN PLACE AND IVF INFUSING. 07:57 Reassessment: was informed by door technicianector Spence that pt was found to have 5 pink colored iw pills in her bed, pills appear to be pt home medication clonazepam, items removed from pt bed, pt stripped of clothing, and bed is searched, belongings will be sent with security. 08:13 Reassessment: PT STATING SHE WISHES TO LEAVE. PROVIDER AT B/S FOR RE-EVAL. bp 08:26 Reassessment: AFTER C/S WITH PT, PROVIDER JUDGES PT UNSAFE TO AMA/DISCHARGE AT THIS bp TIME. PT INFORMED. 11:02 Reassessment: PT REFUSING TO STAY IN BED, REQUIRING FREQUENT REDIRECTION TO STAY IN bp ROOM. PROVIDER INFORMED. 11:21 Reassessment: PER PROVIDER, PT HAS 1:1 SITTER 2/2 STATED INTENT TO ELOPE. PER PROVIDER, bp PT LEVEL OF INTOXICATION INCOMPATIBLE WITH SAFE RELEASE. 12:13 Reassessment: PT CALLED 911 FROM OWN PHONE. PD SPOKE WITH PROVIDER AND EN ROUTE TO TALK bp TO PT. 12:42 Reassessment: PD C/S WITH PROVIDER, AWAITING DETERMINATION ON PT SUITABILITY FOR bp RELEASE. 13:00 Reassessment: PER PD AND PROVIDER, PT CLEARED FOR D/C. PT AOx4, AMBULATES WITH STEADY bp GAIT. PT WARNED AGAINST DRIVING AND PUBLIC INTOXICATION BY PD. SECURITY CONTACTED FOR PT BELONGINGS. 13:06 Reassessment: PT BELONGINGS RETURNED BY SECURITY. bp 13:12 Reassessment: PT LEFT AMBULATORY WITH STEADY GAIT VIA UBER, REFUSED TO SIGN D/C PAPERS bp OR TAKE D/C PACKET. Vital Signs: 06:45 BP 107 / 77; Pulse 115; Resp 20; Temp 97.5(O); Pulse Ox 98% on R/A; Weight 86.18 kg fc (R); Height 5 ft. 8 in. (172.72 cm) (R); Pain 10/10; 07:40 BP 110 / 79; Pulse 87; Resp 15; Pulse Ox 94% ; bp 08:34 BP 132 / 98; Pulse 85; Resp 16; Pulse Ox 99% ; bp 09:26 BP 109 / 95; Pulse 88; Resp 16; Temp 97.6(O); Pulse Ox 99% on R/A; mh5 11:03 BP 119 / 90; Pulse 88; Resp 17; Pulse Ox 97% ; bp 11:36 BP 116 / 83; Pulse 91; Resp 16; Temp 97.8(TE); Pulse Ox 99% on R/A; mh5 12:14 BP 110 / 85; Pulse 81; Resp 17; Pulse Ox 98% ; bp 06:45 Body Mass Index 28.89 (86.18 kg, 172.72 cm) ED Course: 06:45 Arm band placed on Patient placed in an exam room, on a stretcher. fc 06:54 Patient arrived in ED. fc 06:57 Triage completed. fc 06:58 Patient has correct armband on for positive identification. Placed in gown. Bed in low fc position. Call light in reach. Side rails up X2. Pulse ox on. NIBP on. 06:58 No provider procedures requiring assistance completed. fc 07:01 Gatito John FNP-C [facility]. la1 07:01 John Laurent MD is Attending Physician. la1 07:07 Cruzito Chan, ANA is Primary Nurse. bp 07:30 Inserted saline lock: 24 gauge in right forearm, using aseptic technique. bp 09:00 Diet: Patient given a regular meal tray. mh5 12:04 Diet: Patient given a regular meal tray. mh5 12:06 Rin Vivar MD is Hospitalizing Provider. la1 13:02 IV discontinued, intact, bleeding controlled, No redness/swelling at site. Pressure bp dressing applied. Administered Medications: 07:30 Drug: NS 0.9% 1000 ml Route: IV; Rate: 1000 ml; Site: right forearm; bp 13:03 Follow up: IV Status: Completed infusion; IV Intake: 1000ml bp 07:30 Drug: Zofran 4 mg Route: IVP; Site: right forearm; bp 08:14 Follow up: Response: Nausea is decreased bp Intake: 13:03 IV: 1000ml; Total: 1000ml. bp Outcome: 12:07 Decision to Hospitalize by Provider. la1 13:02 Discharge ordered by . la1 13:14 Patient left the ED. bp Signatures: Margaret Ng, RN RN Margarita Ospina RN RN iw Gatito John, DIRECTOR OF TESTING-C DIRECTOR OF TESTING-Cla1 Mirtha Clinton [facility] Cruzito Chan RN RN bp Corrections: (The following items were deleted from the chart) 13:02 07:00 General: RECD REPORT FROM CRISTINA PEREZ. 44YO WF P/W ETOH INTOXICATION. PT SEEN FOR bp SAME MX TIMES IN PAST MONTH. LEFT AMA FOR SAME <12 HR AGO. bp
--- NOTE | 2019-08-01 12:08 | EDPHYS ---
Physician Documentation [facility] Name: Janessa Melton Age: 44 yrs Sex: Female : 1975 Arrival Date: 08/01/2019 Time: 06:54 Bed 17 Private MD: ED Physician John Laurent HPI: 08/01 07:12 This 44 yrs old Female presents to ER via EMS with complaints of Abdominal la1 Pain. 07:12 The patient presents with abdominal pain right lower quadrant. Onset: The la1 symptoms/episode began/occurred 7 day(s) ago. The symptoms do not radiate. Unable to obtain HPI due to obtunded state. pt very slow to respond, speech is slurred, admits to drinking "enough to ease the pain" states she has had onelia for seven days and localizes to the RLQ.. Historical: - Allergies: 07:01 No Known Allergies; fc - Home Meds: 07:01 gabapentin 100 mg oral cap 2 caps 3 times per day [Active]; digoxin 125 mcg Oral tab 1 fc tab once daily [Active]; clonazepam 0.5 mg Oral tab 1 tab bid prn [Active]; albuterol sulfate 90 mcg/actuation inhalation HFAA 2 puffs every 4 hours [Active]; hydroxyzine pamoate 25 mg Oral cap 1 cap 3 times per day [Active]; promethazine 25 mg Oral tab 1 tab q 6hrs prn [Active]; - PMHx: 07:01 Atrial Fib; Bipolar disorder; Hypertension; Lupus; fc - Immunization history:: Last tetanus immunization: unknown. - Social history:: Smoking status: Patient reports the use of cigarette tobacco products, smokes one pack cigarettes per day. Patient uses alcohol, on a daily basis. Patient/guardian denies using street drugs. - Ebola Screening: : Patient negative for fever greater than or equal to 101.5 degrees Fahrenheit, and additional compatible Ebola Virus Disease symptoms Patient denies exposure to infectious person Patient denies travel to an Ebola-affected area in the 21 days before illness onset. ROS: 07:14 Constitutional: Negative for fever. la1 07:14 Abdomen/GI: Positive for abdominal pain. 07:14 All other systems are negative. Exam: 07:14 Head/Face: Normocephalic, atraumatic. Eyes: Periorbital areas with no swelling, la1 redness, or edema. ENT: Mucous membranes moist. Neck: Trachea midline Chest/axilla: Normal chest wall appearance and motion. Nontender with no deformity. Cardiovascular: Regular rate and rhythm with a normal S1 and S2. Respiratory: Lungs have equal breath sounds bilaterally, clear to auscultation. No rales, rhonchi or wheezes noted. No increased work of breathing. 07:14 Back: No spinal tenderness. No costovertebral tenderness. Full range of motion. Skin: Warm, dry with normal turgor. Normal color with no rashes, no lesions, and no evidence of cellulitis. 07:14 Constitutional: The patient appears lethargic, smells of alcohol, ETOH. 07:14 Abdomen/GI: Inspection: obese Bowel sounds: normal, in all quadrants, Palpation: soft, in all quadrants, mild abdominal tenderness, in the suprapubic area, right lower quadrant and left lower quadrant. Vital Signs: 06:45 BP 107 / 77; Pulse 115; Resp 20; Temp 97.5(O); Pulse Ox 98% on R/A; Weight 86.18 kg fc (R); Height 5 ft. 8 in. (172.72 cm) (R); Pain 10/10; 07:40 BP 110 / 79; Pulse 87; Resp 15; Pulse Ox 94% ; bp 08:34 BP 132 / 98; Pulse 85; Resp 16; Pulse Ox 99% ; bp 09:26 BP 109 / 95; Pulse 88; Resp 16; Temp 97.6(O); Pulse Ox 99% on R/A; mh5 11:03 BP 119 / 90; Pulse 88; Resp 17; Pulse Ox 97% ; bp 11:36 BP 116 / 83; Pulse 91; Resp 16; Temp 97.8(TE); Pulse Ox 99% on R/A; mh5 12:14 BP 110 / 85; Pulse 81; Resp 17; Pulse Ox 98% ; bp 06:45 Body Mass Index 28.89 (86.18 kg, 172.72 cm) MDM: 07:02 Patient medically screened. la1 08:44 ED course: while in the ED staff witnessed pt taking pills, pt reports it was klonopin la1 0.5mg and she took 3-4 pills. States she tool them because she was anxious. Pt denies intent to harm herself, states she does not plan to but that she would not be mad if she . Will monitor in ED for possibility of respiratory depression/aspiration risk and re-evaluate when more capable of decision making. 11:47 Data reviewed: vital signs, nurses notes. Data interpreted: Pulse oximetry: on room air la1 is 99 %. Interpretation: normal. Counseling: I had a detailed discussion with the patient and/or guardian regarding: the historical points, exam findings, and any diagnostic results supporting the discharge/admit diagnosis, lab results, the need for further work-up and treatment in the hospital. ED course: Pt still very drowsy, given the recent ingestion of the klonopin and high ETOH level I do not believe it would be safe to let her go home at this time.. 11:53 ED course: Discussed case with poison control who recommend observation for at least 6 la1 hours and fluids as needed for hypotension. case number is [id number]. Will re evaluate at that time.. 12:36 ED course: pt now much more coherent, called police stating she feels she is being held la1 against her will, [employer] here to discuss POC with patient, pt states she would like to call a cab or uber to get back home. After talking with poison control who states primary concern is small chance of hypotension pt should be safe to go home. Pt adamantly denies SI, states she was not trying to hurt herself. . 13:01 ED course: went and talked with pt again, sitting up in bed, speech no longer slurred, la1 oriented x4, apologizing for behavior while intoxicated. Pt asking to call uber for safe ride home, will be dishcarged. 08/01 07:09 Order name: Basic Metabolic Panel; Complete Time: 08:07 08/01 07:09 Order name: CBC with Diff; Complete Time: 08:08/01 07:09 Order name: Creatinine for Radiology; Complete Time: 10:08/01 07:09 Order name: Hepatic Function; Complete Time: 08:07 08/01 07:09 Order name: Lipase; Complete Time: 08:07 08/01 07:09 Order name: ETOH Level; Complete Time: :08/01 07:09 Order name: IV Saline Lock; Complete Time: 07:39 la1 08/01 07:59 Order name: CBC Smear Scan; Complete Time: 08:07 EDNY 08/01 08:33 Order name: Acetaminophen; Complete Time: 11:00 la1 08/01 08:33 Order name: ASA; Complete Time: 10:44 la1 08/01 10:01 Order name: Diet Regular; Complete Time: 10:01 5 08/01 11:24 Order name: Diet Regular: please send meat and green veggies also green salads... no mh5 breads; Complete Time: 11:24 08/01 07:09 Order name: Labs collected and sent; Complete Time: 07:16 la1 Administered Medications: 07:30 Drug: NS 0.9% 1000 ml Route: IV; Rate: 1000 ml; Site: right forearm; bp 13:03 Follow up: IV Status: Completed infusion; IV Intake: 1000ml bp 07:30 Drug: Zofran 4 mg Route: IVP; Site: right forearm; bp 08:14 Follow up: Response: Nausea is decreased bp Disposition: 08/01/19 13:02 Discharged to Home. Impression: Generalized abdominal pain, Alcohol abuse with intoxication. - Condition is Stable. - Discharge Instructions: Abdominal Pain, Adult, Alcohol Intoxication, Systemic Lupus Erythematosus, Adult. - Medication Reconciliation Form, Thank You Letter form. - Follow up: Private Physician; When: 2 - 3 days; Reason: Recheck today's complaints, Re-evaluation by your physician. Addendum: 08/16/2019 19:01 Co-signature as Attending Physician, John Laurent MD. p kl Signatures: Dispatcher [employer] EDNY John Laurent MD MD pkl Chretien, Felicia, RN RN fc Gatito John, GREENSKEEPER LABORER-C GREENSKEEPER LABORER-Cla1 Cruzito Chan, RN RN bp Corrections: (The following items were deleted from the chart) 08/01 11:53 11:47 ED course: Pt still very drowsy, given the recent ingestion of the klonopin and la1 high ETOH level . la1 12:36 12:07 Hospitalization Ordered by Rin Vivar MD for Observation. Preliminary la1 diagnosis is Alcohol abuse with intoxication; Altered mental status, unspecified; Adverse effect of benzodiazepines. Bed requested for Telemetry/MedSurg (observation). Status is Observation. Condition is Stable. Problem is new. Symptoms are unchanged. UTI on Admission? No. la1 13:14 13:02 08/01/2019 13:02 Discharged to Home. Impression: Generalized abdominal pain; bp Alcohol abuse with intoxication. Condition is Stable. Forms are Medication Reconciliation Form, Thank You Letter, Antibiotic Education, Prescription Opioid Use. Follow up: Private Physician; When: 2 - 3 days; Reason: Recheck today's complaints, Re-evaluation by your physician. la1
[2019-08-01 13:39] VITALS: TEMP 97.8
[2019-08-02 10:34] VITALS: BP 110/85; O2SAT 98
== END 2019-08-01 13:14 | disposition home or self-care (01) ==
LOC: ER 06:49
DX: F10.129 Alcohol abuse with intoxication, unspecified (principal); Z72.0 Tobacco use
CPT/HCPCS: 36415; 80048; 80076; 80320; 80329; 83690; 85025; 96361; 96374; 99284; J2405; J7030